=== PATIENT | female | born 1960 | race Caucasian/White ===

== ENCOUNTER 2018-01-29 12:06 | Outpatient (CLI) | payer BC | END 2018-01-29 12:07 | disposition home or self-care (01) | LOC: BICMAMMO 12:06 | PROVIDERS: ATTEND Physician Assistant | DX: Z12.31 Encounter for screening mammogram for malignant neoplasm of breast (principal); Z80.3 Family history of malignant neoplasm of breast | CPT/HCPCS: 77063; 77067 ==

== ENCOUNTER 2023-01-24 09:30 | Outpatient (CLI) | payer BC | END 2023-01-24 09:31 | disposition home or self-care (01) | LOC: BICMRI 09:30 | PROVIDERS: ATTEND Surgery | DX: C50.111 Malignant neoplasm of central portion of right female breast (principal); N63.10 Unspecified lump in the right breast, unspecified quadrant | CPT/HCPCS: 82565; A9577; C8908 ==

== ENCOUNTER 2023-12-06 13:17 | Outpatient (CLI) | payer BC | END 2023-12-06 13:18 | disposition home or self-care (01) | LOC: BICMAMMO 13:17 | PROVIDERS: ATTEND Surgery | DX: Z08 Encounter for follow-up examination after completed treatment for malignant neoplasm (principal); Z85.3 Personal history of malignant neoplasm of breast | CPT/HCPCS: 77066; G0279 ==

== ENCOUNTER 2025-07-27 08:14 | Outpatient (CLI) | payer BC | END 2025-07-27 08:15 | disposition home or self-care (01) | LOC: BICMAMMO 08:14 | PROVIDERS: ATTEND Internal Medicine Hematology & Oncology | DX: C50.811 Malignant neoplasm of overlapping sites of right female breast (principal); M85.88 Other specified disorders of bone density and structure, other site | CPT/HCPCS: 77080 ==